=== PATIENT | male | born 1940 | race Caucasian/White ===

== ENCOUNTER → 2018-07-05 | Day surgery (SDC) | payer MEDICARE, BC ==
[2018-06-27 13:14] LABS: BASOPHILS % 0.5 % (0.0-1.0); EOSINOPHILS # (AUTO) 0.4 (0.0-0.4); EOSINOPHILS % 4.1 % (0.0-6.0); HEMATOCRIT 33.3 % (38.2-49.6); HEMOGLOBIN 11.4 g/dL (14.0-18.0); LYMPHOCYTES # (AUTO) 0.7 (1.0-3.2); LYMPHOCYTES % 7.8 % (18.0-39.1); MEAN CORPUSCULAR HEMOGLOBIN 31.5 pg (28-32); MEAN CORPUSCULAR HGB CONC 34.2 g/dL (31-35); MONOCYTES # (AUTO) 0.7 (0.2-0.8); MONOCYTES % 7.8 % (4.4-11.3); NEUTROPHILS # (AUTO) 6.9 (2.1-6.9); NEUTROPHILS % 79.3 % (38.7-80.0); PLATELET COUNT 211 x10e3/uL (140-360); RED BLOOD COUNT 3.62 x10e6/uL (4.3-5.7); RED CELL DISTRIBUTION WIDTH 12.5 % (11.7-14.4)
[~2018-07-05] MED LIST: ATORVASTATIN CA20 MG PO; AVODART0.5 MG PO; B12; CARBAMAZEPINE200 MG PO; CLOPIDOGREL75 MG PO; DIGOXIN125 MCG PO; ENTRESTO; FUROSEMIDE40 MG PO; INSPRA50 MG; LEVOTHYROXINE50 MCG PO; METFORMIN HCL500 MG PO; METOLAZONE5 MG PO; METOPROLOL SUCC50 MG PO; MIDAZOLAM HCL 2 MG/2 ML VIAL ONE; OR PHACO EYE KIT ONE; PREOP PHACO EYE KIT ONE; SPIRIVA18 MCG INH; XARELTO20 MG; XYZAL5 MG
--- OUTSIDE RECORDS SUMMARY | 2018-07-05 08:30 | XMS REPORT | Clinical Summary ---
Author Author MARCEL [facility] Address Unknown Phone Unavailable Care Team Providers Care Computer Language Coder Name Role Phone Emma Luciivonne Isaac PCP Allergies Comments Active Allergy Reactions Severity Noted Date Latex High 12/20/2015 Medications End Date Status Medication Sig Dispensed Refills Start Date Active aspirin 81 MG EC tablet Take 81 mg by 0 mouth daily. Active atorvastatin (LIPITOR) 80 Take 80 mg by 0 MG tablet mouth daily. Active b complex vitamins Take 1 0 capsule capsule by mouth daily. Active clopidogrel (PLAVIX) 75 Take 75 mg by 0 mg tablet mouth daily. Active digoxin (LANOXIN) 0.25 MG Take 250 mcg 0 tablet by mouth daily. Active eplerenone (INSPRA) 25 MG Take 25 mg by 0 tablet mouth daily 2 tabs once daily . Active furosemide (LASIX) 40 MG Take 40 mg by 0 tablet mouth daily. Active levothyroxine (SYNTHROID, Take 75 mcg 0 LEVOTHROID) 75 MCG tablet by mouth Every morning on an empty stomach. Active lisinopril Take 10 mg by 0 (PRINIVIL,ZESTRIL) 10 MG mouth daily. tablet Active metoprolol (TOPROL-XL) 50 Take 50 mg by 0 MG 24 hr tablet mouth daily. Active tiotropium (SPIRIVA) 18 Inhale 18 mcg 0 mcg inhalation capsule by mouth via inhaler daily. 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-D / [id number] [employer] Implanted: Qty: 1 on 12/23/2015 Results Not on fileafter 07/04/2017 Insurance Payer Benefit Subscriber ID Type Phone Address Plan / Group MEDICARE MEDICARE A xxxxxxxxxx Medicare B BLUE CROSS/BLUE SHIELD BCBS PPO xxxxxxxxxxxx PPO [phone] [address] [place] [address] CHOICE Advance Directives For more information, please contact: [facility] [address] [place] [address] Date Inactivated Comments Code Status Date Activated 12/23/2015 4:27 PM Full Code 12/23/2015 8:26 AM This code status was determined by: Patient 12/23/2015 8:26 AM Full Code 12/23/2015 5:36 AM This code status was determined by: Patient
--- OUTSIDE RECORDS SUMMARY | 2018-07-05 08:30 | XMS REPORT | Clinical Summary ---
Author Author [facility] Address Unknown Phone Unavailable Care Team Providers Care Vmware Consultant Name Role Phone PCP Unavailable Allergies Not on File Medications Not on file Active Problems Not on file Social History Date Tobacco Use Types Packs/Day Years Used Never Assessed Sex Assigned at Date Recorded Not on file Industry Job Start Date Occupation Not on file Not on file Not on file Travel End Travel History Travel Start No recent travel history available. Last Filed Vital Signs Not on file Plan of Treatment Health Maintenance Due Date Last Done Comments SHINGLES VACCINES (1 of 1991 2) PNEUMOCOCCAL 2006 POLYSACCHARIDE VACCINE AGE 65 AND OVER PNEUMOCOCCAL-13 2006 INFLUENZA VACCINE 12/15/2017 Results Not on fileafter 07/04/2017 Insurance Payer Benefit Subscriber ID Type Phone Address Plan / Group MEDICARE MEDICARE xxxxxxxxxx Medicare [place], [place] PART A AND B Advance Directives Patient has advance care planning documents on file. For more information, patricia ramon contact: Flo Jordan [address] [place] [id number]
--- OUTSIDE RECORDS SUMMARY | 2018-07-05 08:30 | XMS REPORT ---
Author Author [facility] Address Unknown Phone Unavailable Care Team Providers Care Farm Operations Technical Director Name Role Phone SEDA BOWENS Unavailable Unavailable Problems This patient has no known problems. Allergies, Adverse Reactions, Alerts This patient has no known allergies or adverse reactions. Medications This patient has no known medications. Results Test Description Test Time Test Comments Text Results Atomic Results Result Comments B-TYPE NATRIURETIC FACTOR (BNP) 2017-01-20 16:59:00 B-TYPE NATRIURETIC PEPTIDE (BEAKER) (test sdvt=354) 108 pg/mL 0-100 BASIC METABOLIC [id number] 16:53:00* Test Item Value Reference Range Comments SODIUM (BEAKER) (test rqvc=961) 140 meq/L 136-145 POTASSIUM (BEAKER) (test dfdx=830) 4.5 meq/L 3.5-5.1 CHLORIDE (BEAKER) (test bxnu=068) 102 meq/L 98-107 CO2 (BEAKER) (test rzzt=366) 30 meq/L 22-29 BLOOD UREA NITROGEN (BEAKER) (test uesl=574) 15 mg/dL 7-21 CREATININE (BEAKER) (test pwaz=236) 1.13 mg/dL 0.57-1.25 GLUCOSE RANDOM (BEAKER) (test txjp=766) 143 mg/dL 70-105 CALCIUM (BEAKER) (test qimd=341) 9.5 mg/dL 8.4-10.2 EGFR (BEAKER) (test hrsg=7339) 63 mL/min/1.73 sq m ESTIMATED GFR IS NOT ACCURATE CREATININE CLEARANCE IN PREDICTING GLOMERULAR FILTRATION RATE. ESTIMATED GFR IS NOT APPLICABLE FOR DIALYSIS PATIENTS. RAD, CHEST, 2 [id number] 15:59:00Reason for Exam:->Z95.810Location[facility] PA and lateral. History: Z95.810. Comparison: 11/03/2011. Discussion: A left AICD is present. There is cardiomegaly similar to previous. The lungs are clear without evidence of consolidation or effusion. There are no acute osseous abnormalities. The soft tissues are unremarkable. IMPRESSION: No acute cardiopulmonary abnormality. No appreciable change from previous. Signed: Stu Serrano Verified Date/Time: 01/20/2017 15:59:51 Reading Location: [address] Radiology Reading Room
[2018-07-05 11:45] VITALS: BP 119/63
== END | disposition home or self-care (01) ==
LOC: OR 08:24
PROVIDERS: ATTEND Ophthalmology
DX: H25.12 Age-related nuclear cataract, left eye (principal); J44.9 Chronic obstructive pulmonary disease, unspecified; I25.810 Atherosclerosis of coronary artery bypass graft(s) without angina pectoris; I25.2 Old myocardial infarction; I48.2 Chronic atrial fibrillation; I25.5 Ischemic cardiomyopathy; I11.0 Hypertensive heart disease with heart failure; I50.22 Chronic systolic (congestive) heart failure; E78.2 Mixed hyperlipidemia; Z91.040 Latex allergy status; Z01.812 Encounter for preprocedural laboratory examination; Z68.30 Body mass index [BMI] 30.0-30.9, adult; Z95.810 Presence of automatic (implantable) cardiac defibrillator
CPT/HCPCS: 36415 ×2; 66984; 82948; 85025; J2250; V2632

== ENCOUNTER → 2019-11-06 | Outpatient (CLI) | payer MEDICARE, BC, OTHER ==
[~2019-11-06] MED LIST changes: +ALLEGRA ALLERGY60 MG PO; +APRISO0.375 GM PO; -B12; +B12 PO; +BUMETANIDE1 MG PO; +DICYCLOMINE HCL10 MG PO; -ENTRESTO; +ENTRESTO PO; -INSPRA50 MG; +INSPRA50 MG PO; +JALYN 0.5-0.41 EACH PO; +MAGNESIUM PO; -MIDAZOLAM HCL 2 MG/2 ML VIAL ONE; +NITROGLYCERIN0.4 MG SL; -OR PHACO EYE KIT ONE; +PANTOPRAZOLE SO20 MG PO; +POTASSIUM CHLO20 ME1 PO; -PREOP PHACO EYE KIT ONE; +VITAMIN D310000 UNIT PO; -XARELTO20 MG; +XARELTO20 MG PO; -XYZAL5 MG; +XYZAL5 MG PO
[2019-11-06 16:39] LABS: BASOPHILS % 0.5 % (0.0-1.0); EOSINOPHILS # (AUTO) 0.2 (0.0-0.4); EOSINOPHILS % 2.9 % (0.0-6.0); HEMATOCRIT 37.4 % (38.2-49.6); HEMOGLOBIN 12.8 g/dL (14.0-18.0); LYMPHOCYTES # (AUTO) 0.5 (1.0-3.2); MEAN CORPUSCULAR HGB CONC 34.2 g/dL (31-35); MEAN CORPUSCULAR VOLUME 90.6 fL (81-99); MONOCYTES # (AUTO) 0.7 (0.2-0.8); NEUTROPHILS % 80.1 % (38.7-80.0); PLATELET COUNT 204 x10e3/uL (140-360); RED BLOOD COUNT 4.13 x10e6/uL (4.3-5.7); RED CELL DISTRIBUTION WIDTH 13.5 % (11.7-14.4)
== END | disposition home or self-care (01) ==
LOC: LAB 05:00 → OR 11-09 08:14 → EDSTATUS 11-09 09:30
PROVIDERS: ATTEND Internal Medicine Gastroenterology
DX: R19.7 Diarrhea, unspecified (principal); Z01.812 Encounter for preprocedural laboratory examination; Z11.59 Encounter for screening for other viral diseases; Z91.040 Latex allergy status; Z53.8 Procedure and treatment not carried out for other reasons
CPT/HCPCS: 36415; 85025; 87635

== ENCOUNTER → 2019-11-13 | Outpatient (CLI) | payer MEDICARE, BC, OTHER | LOC: LAB 05:00 → EDSTATUS 11-16 08:00 | PROVIDERS: ATTEND Internal Medicine Gastroenterology | DX: Z01.818 Encounter for other preprocedural examination (principal); R19.7 Diarrhea, unspecified; Z53.8 Procedure and treatment not carried out for other reasons; Z11.59 Encounter for screening for other viral diseases | CPT/HCPCS: U0002 ==

== ENCOUNTER → 2020-04-30 | Outpatient (CLI) | payer MEDICARE, BC ==
[~2020-04-30] MED LIST changes: +FLOMAX0.4 MG PO; +GABAPENTIN100 MG PO; +GABAPENTIN400 MG PO; +PROVENTIL HFA6.7 GM INH
[2020-04-30 15:22] LABS: BASOPHILS # (AUTO) 0.1 (0.0-0.1); BASOPHILS % 0.9 % (0.0-1.0); EOSINOPHILS # (AUTO) 0.2 (0.0-0.4); EOSINOPHILS % 3.3 % (0.0-6.0); HEMOGLOBIN 10.8 g/dL (14.0-18.0); LYMPHOCYTES # (AUTO) 0.4 (1.0-3.2); LYMPHOCYTES % 5.6 % (18.0-39.1); MEAN CORPUSCULAR HEMOGLOBIN 29.4 pg (28-32); MEAN CORPUSCULAR HGB CONC 32.7 g/dL (31-35); MEAN CORPUSCULAR VOLUME 89.9 fL (81-99); MONOCYTES # (AUTO) 0.7 (0.2-0.8); MONOCYTES % 9.6 % (4.4-11.3); NEUTROPHILS # (AUTO) 5.6 (2.1-6.9); NEUTROPHILS % 80.3 % (38.7-80.0); PLATELET COUNT 265 x10e3/uL (140-360); RED BLOOD COUNT 3.67 x10e6/uL (4.3-5.7); RED CELL DISTRIBUTION WIDTH 13.9 % (11.7-14.4)
== END ==
LOC: DX 21:34 → EDSTATUS 05-02 09:00
PROVIDERS: ATTEND Internal Medicine Gastroenterology
DX: Z01.812 Encounter for preprocedural laboratory examination (principal); Z20.828 Contact with and (suspected) exposure to other viral communicable diseases; R19.7 Diarrhea, unspecified
CPT/HCPCS: 36415; 85025; U0002